=== PATIENT | male | born 1970 | race Caucasian/White ===

== ENCOUNTER 2022-05-29 10:25 | Emergency (ER) | payer OTHER ==
[~2022-05-29] VITALS: Ht 170.2 cm; Wt 75.0 kg
[2022-05-29 11:07] LABS: COVID AG,FIA SOURCE NASAL SWAB
[2022-05-29 11:33] LABS: INFLUENZA TYPE A NEGATIVE FOR TYPE A (NEGATIVE); INFLUENZA TYPE B NEGATIVE FOR TYPE B (NEGATIVE)
[2022-05-29 13:41] VITALS: BP 131/74
[2022-05-29] MEDS ORDERED: ERYT3.5O8 OD (13:45)
== END 2022-05-29 15:35 | disposition home or self-care (01) ==
LOC: EMS 10:48
DX: J06.9 Acute upper respiratory infection, unspecified (principal); Z20.822 Contact with and (suspected) exposure to COVID-19; H00.013 Hordeolum externum right eye, unspecified eyelid; H10.31 Unspecified acute conjunctivitis, right eye
CPT/HCPCS: 87804; 99283

== ENCOUNTER 2022-08-28 09:06 | Emergency (ER) | payer OTHER ==
[~2022-08-28] VITALS: Ht 162.6 cm; Wt 71.0 kg
[~2022-08-28 09:06] MED LIST: ERYT3.5O8 OD
[2022-08-28] MEDS ORDERED: KETOROLAC TROMETHAMINE 60 MG/2 ML VIAL IM ONE (10:15)
[2022-08-28 13:35] VITALS: BP 131/82
[2022-08-28] MEDS ORDERED: IBUP-1492 PO (13:41)
== END 2022-08-28 13:55 | disposition home or self-care (01) ==
LOC: EMS 09:09
DX: M62.40 Contracture of muscle, unspecified site (principal); R51.9 Headache, unspecified
CPT/HCPCS: 99285; 96372; J1885

== ENCOUNTER 2023-03-02 09:10 | Emergency (ER) | payer OTHER ==
[~2023-03-02] VITALS: Ht 170.2 cm; Wt 79.5 kg
[~2023-03-02 09:10] MED LIST changes: -ERYT3.5O8 OD; +IBUP-1492 PO
[2023-03-02 09:13] VITALS: TEMP 97.9
[2023-03-02 09:38] LABS: BASOPHILS % (AUTO) 0.8 % (0.0-2.0); EOSINOPHILS % (AUTO) 2.2 % (1.0-6.0); HEMATOCRIT 43.6 % (41-53); HEMOGLOBIN 13.8 g/dL (13.5-17.5); LYMPHOCYTES % (AUTO) 42.5 % (22.0-44.0); MEAN CORPUSCULAR HEMOGLOBIN 25.2 pg (26.0-34.0); MEAN CORPUSCULAR HGB CONC 31.7 G/dL (31.0-37.0); MEAN CORPUSCULAR VOLUME 80 fL (80-100); MONOCYTES # (AUTO) 0.6 K/uL (0.1-1.0); MONOCYTES % (AUTO) 13.5 % (2.0-9.0); NEUTROPHILS # (AUTO) 1.9 K/uL (1.8-7.7); PLATELET COUNT (AUTO) 152 K/uL (150-450); RED BLOOD CELL COUNT(AUTO) 5.48 MIL/uL (4.50-5.90); RED CELL DISTRIBUTION WIDTH 21.6 % (11.5-14.5); WHITE BLOOD COUNT (AUTO) 4.7 K/uL (4.5-11.0)
[2023-03-02 09:51] LABS: ANION GAP 8 mmol/L (8-16); CARBON DIOXIDE 29 mmol/L (22-29); CHLORIDE 103 mmol/L (98-107); CREATININE 0.71 mg/dL (0.60-1.30); GLUCOSE,RANDOM 94 mg/dL (70-110); POTASSIUM 4.1 mmol/L (3.5-5.1); SODIUM SERUM 140 mmol/L (136-145); UREA NITROGEN, BLOOD 13 mg/dL (7-18)
[2023-03-02 09:52] LABS: CALCIUM, TOTAL 8.9 mg/dL (8.8-10.5); GLOMERULAR FILTR. RATE CALC > 60 mL/min (>60)
[2023-03-02 09:57] LABS: ALANINE AMINOTRANSFERASE 50 U/L (12-78); ALBUMIN 3.7 g/dL (3.4-5.0); ALKALINE PHOSPHATASE 50 U/L (46-116); ASPARTATE AMINOTRANSFERASE 26 U/L (15-37); BILIRUBIN,TOTAL 0.6 mg/dL (0.1-1.0)
[2023-03-02 09:58] LABS: TROPONIN I-HIGH SENSITIVITY 37 ng/L (<76)
[2023-03-02 11:00] VITALS: BP 118/87; PULSE 61; RESP 18
[2023-03-02] MEDS ORDERED: IBUP-1492 PO (11:44)
== END 2023-03-02 11:56 | disposition home or self-care (01) ==
LOC: EMS 09:14
DX: R07.89 Other chest pain (principal)
CPT/HCPCS: 71045; 80053; 84484; 85025; 93005; 99285; 36415-L1; 36415-TC